=== PATIENT | male | born 1980 | race Caucasian/White ===

== ENCOUNTER 2020-06-06 10:44 | Outpatient (CLI) | payer OTHER, SELFPAY ==
[2020-06-06 10:58] LABS: Add Urine Microscopic? NO; Appearance Urine Clear (Clear); Bilirubin Urine Negative (Negative); Blood Urine Negative (Negative); Color Urine Yellow (Yellow); Glucose Urine UA Negative (Negative); Ketones Urine Negative (Negative); Leukocyte Esterase Ur Negative (Negative); Nitrate Urine Negative (Negative); Protein Urine Negative (Negative); Specific Grav Ur 1.025 (1.010-1.020); Urobilinogen Urine 0.2 mg/dL (0.2-1.0); pH Urine 6.5 (5.0-8.0)
== END 2020-06-06 10:45 | disposition home or self-care (01) ==
LOC: CHSLAB 10:49
PROVIDERS: PCP Internal Medicine; Visit Provider Internal Medicine
DX: N45.1 Epididymitis (principal)
CPT/HCPCS: 81003; 87086; 87491; 87591

== ENCOUNTER 2020-06-22 08:20 | Outpatient (CLI) | payer OTHER, SELFPAY | END 2020-06-22 08:21 | disposition home or self-care (01) | LOC: CHSCOVIDVC 08:21 | PROVIDERS: PCP Internal Medicine | DX: Z23 Encounter for immunization (principal) | CPT/HCPCS: 0011A; 91301 ==

== ENCOUNTER 2020-07-20 08:21 | Outpatient (CLI) | payer OTHER, SELFPAY | END 2020-07-20 08:22 | disposition home or self-care (01) | LOC: CHSCOVIDVC 08:21 | PROVIDERS: PCP Internal Medicine | DX: Z23 Encounter for immunization (principal) | CPT/HCPCS: 0012A; 91301 ==

== ENCOUNTER 2020-07-27 09:28 | Outpatient (CLI) | payer OTHER, SELFPAY ==
[2020-07-27 10:28] LABS: SARS-CoV-2 RNA PCR Negative (Negative)
== END 2020-07-27 09:29 | disposition home or self-care (01) ==
PROVIDERS: PCP Internal Medicine; Visit Provider Nurse Practitioner Family
DX: Z20.822 Contact with and (suspected) exposure to COVID-19 (principal)
CPT/HCPCS: C9803; U0003; U0005

== ENCOUNTER 2020-12-02 10:45 | Emergency (ER) | payer OTHER, SELFPAY ==
--- NOTE | ~2020-12-02 | CT_ITS ---
EXAMINATION: CT brain wo con EXAM DATE: 12/02/2020 12:20 INDICATION: Syncope, dizziness, tachycardia. Numbness in limbs. Recent episodes of anxiety/stress. TECHNIQUE: Spiral CT of the head was performed without contrast. Axial, coronal and sagittal images were reviewed. The dose-length product (DLP) for this examination was 605.33 mGy-cm. The exposure w as tailored according to patient size, and iterative reconstruction (ASIR) was used as additional dos e reduction technique. There is no prior study for comparison. FINDINGS: There is no acute intraparenchymal hemorrhage. No evidence of intraparenchymal brain mass lesion. No evidence of acute infarction. There is no mass effect or midline shift. The ventricles are normal in size. There are no extra-axial collections. There are no acute calvarial fractures. T he orbits are unremarkable. Soft tissue is unremarkable. The visualized sinuses and mastoid air samia ls are well aerated. IMPRESSION: 1. Unremarkable head CT examination. Reviewed, dictated and finalized at location A.
[2020-12-02 10:45] VITALS: BP 139/95; PULSE 86; PULSE 88; RESP 17; TEMP 36.6; O2SAT 95
--- NOTE | 2020-12-02 11:38 | ECG_ITS ---
Measurements Intervals [place] Rate: 85 P: 58 [place]: 142 QRS: 74 QRSD: 98 T: 71 QT: 333 QTc: 398 Interpretive Statements SINUS RHYTHM NORMAL ECG Electronically Signed On 12-02-2020 14:50:41 CDT by Marcelino Cross D.O.
[2020-12-02 12:07] LABS: Basophils Absolute Auto 0.08 K/mm3 (0.00-0.10); Eosinophils Absolute Auto 0.13 K/mm3 (0.02-0.50); Eosinophils Percent Auto 1.6 % (1.0-6.0); Hematocrit 53.1 % (40.0-54.0); Hemoglobin 17.9 g/dL (14.0-18.0); Immature Granulocyte Absolute 0.06 K/mm3 (0.00-0.00); Immature Granulocyte Percent A 0.7 % (0.0-0.0); Lymphocytes Percent Auto 12.5 % (18.0-42.0); Mean Corpuscular HGB Conc 33.7 g/dL (32.0-36.0); Mean Corpuscular Hemoglobin 31.6 pg (27.0-31.0); Mean Corpuscular Volume 93.8 fL (78.0-102.0); Mean Platelet Volume 10.1 fl (8.7-11.0); Monocytes Absolute Auto 0.86 K/mm3 (0.10-0.90); Monocytes Percent Auto 10.7 % (2.0-11.0); Neutrophils Absolute Auto 5.9 K/mm3 (1.7-7.2); Neutrophils Percent Auto 73.5 % (50.0-70.0); Platelet Count Result 293 K/mm3 (150-420); Red Blood Count 5.66 M/mm3 (4.70-6.10); Red Cell Distribution Width 13.2 % (11.6-14.4)
[2020-12-02 12:18] LABS: Ethanol < 3 mg/dL (0-6)
[2020-12-02 12:24] LABS: Alanine Aminotransferase 30 U/L (16-63); Albumin Level 3.8 g/dL (3.4-5.0); Alkaline Phosphatase 66 U/L (46-116); Anion Gap 10 mmol/L (8-16); Aspartate Amino Transferase 10 U/L (15-37); Bilirubin,Total 0.3 mg/dL (0.00-1.00); Blood Urea Nitrogen 14 mg/dL (7-18); Calcium 9.1 mg/dL (8.5-10.1); Carbon Dioxide 31 mmol/L (21-32); Chloride 101 mmol/L (98-108); Estimated CRCL calculation 87 ml/min; Estimated Glomerular Filt Rate > 60; Glucose 98 mg/dL (70-99); Osmolality Calculated 294 mOsm/kg (285-295); Potassium 4.3 mmol/L (3.5-5.1); Sodium 142 mmol/L (136-145); Total Protein 7.2 g/dL (6.4-8.2); Troponin I 4.2 ng/L (0.00-60.4)
[2020-12-02 13:25] LABS: Add Urine Microscopic? YES; Appearance Urine Sl Cloudy (Clear); Bilirubin Urine Negative (Negative); Blood Urine Negative (Negative); Color Urine Light Yellow (Yellow); Glucose Urine UA Negative (Negative); Ketones Urine Negative (Negative); Leukocyte Esterase Ur Negative (Negative); Nitrate Urine Negative (Negative); Protein Urine Negative (Negative); Specific Grav Ur 1.015 (1.010-1.020); Urobilinogen Urine 0.2 mg/dL (0.2-1.0)
[2020-12-02 13:27] LABS: RBC Urine None seen /hpf (0-2)
[2020-12-02 13:28] LABS: Amorphous Sediment Urine Moderate; Bacteria Urine Trace /hpf; WBC Urine None seen /hpf (0-3)
[2020-12-02 13:34] LABS: Amphetamine Screen Urine Negative (Negative); Barbiturate Screen Urine Negative (Negative); Benzodiazepines Screen Urine Positive (Negative); Cannabinoid Screen Urine Negative (Negative); Cocaine Screen Urine Positive (Negative); Methadone Screen Urine Negative (Negative); Opiate Screen Urine Negative (Negative); Phencyclidine Screen Urine Negative (Negative)
--- NOTE | 2020-12-02 14:07 | ED.SYNCOPE ---
HPI - Syncope General Chief Complaint: Syncope Stated Complaint: ambulance Time Seen by Provider: 12/02/20 10:50 Source: patient, family, EMS and RN notes reviewed Mode of arrival: EMS Limitations: no limitations History of Present Illness complaint: loss of consciousness and collapsed Onset (ago): hour(s) (1/2) Duration of episode: 30 -: second(s) Description of event: other (pt was dizzy, he sat down, went to his knees and forearms then fell over laterally for a brief moment.) Prodromal symptoms: headache and nausea/vomiting Witnessed: Yes - by Other Context: during exertion and standing up Injuries sustained associated with event: none Current symptoms: lightheaded, headache and nausea Treatments prior to arrival: none Related Data Home Medications Medication Instructions Recorded Confirmed aripiprazole 5 mg PO DAILY 12/02/20 12/02/20 escitalopram oxalate 20 mg PO DAILY 12/02/20 12/02/20 Allergies Allergy/AdvReac Type Severity Reaction Status Date / Time No Known Allergies Allergy Verified 12/02/20 11:24 Review of Systems Review of Systems: All systems reviewed & are unremarkable except as noted in HPI and below Neurologic: Reports dizziness, Reports syncope and Reports headache(s) PMFSH Past Medical History Medical History Dizziness and giddiness Exam Const: General: healthy appearing, no acute distress and alert Nutritional Appearance: well nourished Orientation/consciousness: patient oriented x3 HENMT: Head: normal to inspection Ears: external ears normal and TM's normal bilaterally General nose exam: Normal external nose present and Normal nares present Face and sinus: normal facial exam Mouth: Yes lip normal and Yes moist mucous membranes Teeth and gingiva: dentition normal Throat: posterior oropharynx normal Eyes: Conjunctivae: conjunctivae normal Pupils: Equal, round and reactive pupils present EOM: EOMs intact bilaterally Neck: Neck: normal visual inspection and no lymphadenopathy Chest: Chest palpation & inspection: normal inspection of the chest Resp: Effort & Inspection: normal respiratory effort Auscultation: clear to auscultation bilaterally Cardio: Rate: regular rate Rhythm: regular rhythm Course Course Emergency Course: Pt was stable in the ED. Less GARCIA and dizziness. Pt for Behavioral Health review prior to disposition. Reevaluation(s) Date: 12/02/20 Time: 11:41 Vital Signs Vital signs: Vital Signs Temperature 36.6 C 12/02/20 10:45 Pulse Rate 86 12/02/20 10:45 Respiratory Rate 17 12/02/20 10:45 Blood Pressure 139/95 H 12/02/20 10:45 Pulse Oximetry 95 12/02/20 10:45 Temperature 36.6 C 12/02/20 10:45 Pulse Rate 102 H 12/02/20 15:42 Respiratory Rate 20 12/02/20 15:42 Blood Pressure 133/91 H 12/02/20 15:42 Pulse Oximetry 98 12/02/20 15:42 MDM - Syncope Differential Diagnosis Differential diagnosis: Likely syncope due to orthostatic hypotension, vasovagal syncope and dehydration Medical Records Attestation: I reviewed the patient's medical records. Lab Data Attestation: I reviewed the patient's lab results. Result diagrams: 12/02/20 11:57 12/02/20 11:57 Labs: Lab Results 12/02/20 12/02/20 12/02/20 Range/Units 11:43 11:43 11:57 WBC 8.0 (4.8-10.8) K/mm3 RBC 5.66 (4.70-6.10) M/mm3 Hgb 17.9 (14.0-18.0) g/dL Hct 53.1 (40.0-54.0) % MCV 93.8 (78.0-102.0) fL MCH 31.6 H (27.0-31.0) pg MCHC 33.7 (32.0-36.0) g/dL RDW 13.2 (11.6-14.4) % Plt Count 293 (150-420) K/mm3 MPV 10.1 (8.7-11.0) fl Immature Gran % (Auto) 0.7 H (0.0-0.0) % Neut % (Auto) 73.5 H (50.0-70.0) % Lymph % (Auto) 12.5 L (18.0-42.0) % Burt % (Auto) 10.7 (2.0-11.0) % Eos % (Auto) 1.6 (1.0-6.0) % Baso % (Auto) 1.0 (0.0-1.0) % Lymph # (Auto) 1.00 L (1.10-4.50) K/mm3 Burt # (Auto) 0.86 (0.10-0.
[2020-12-02 15:42] VITALS: BP 133/91; PULSE 102; RESP 20; O2SAT 98
== END 2020-12-02 15:45 | disposition home or self-care (01) ==
PROVIDERS: Emergency Provider Emergency Medicine; PCP Internal Medicine
DX: R42 Dizziness and giddiness (principal); F41.9 Anxiety disorder, unspecified
CPT/HCPCS: 36415; 70450; 80053; 80307; 81001; 84484; 85025; 93005; 99282; 99284

== ENCOUNTER 2021-02-28 14:40 | Outpatient (CLI) | payer OTHER, SELFPAY ==
[2021-02-28 15:46] LABS: SARS-CoV-2 Ag Negative (Negative)
== END 2021-02-28 14:41 | disposition home or self-care (01) ==
LOC: CHSLAB 14:42
PROVIDERS: PCP Internal Medicine; Visit Provider Internal Medicine
DX: J06.9 Acute upper respiratory infection, unspecified (principal); Z20.822 Contact with and (suspected) exposure to COVID-19
CPT/HCPCS: 87426; C9803

== ENCOUNTER 2021-06-04 13:43 | Outpatient (CLI) | payer OTHER, SELFPAY ==
[2021-06-04 14:00] LABS: Basophils Absolute Auto 0.09 K/mm3 (0.00-0.10); Basophils Percent Auto 1.9 % (0.0-1.0); Eosinophils Absolute Auto 0.03 K/mm3 (0.02-0.50); Eosinophils Percent Auto 0.6 % (1.0-6.0); Hematocrit 50.6 % (40.0-54.0); Hemoglobin 16.6 g/dL (14.0-18.0); Immature Granulocyte Absolute 0.02 K/mm3 (0.00-0.00); Immature Granulocyte Percent A 0.4 % (0.0-0.0); Lymphocytes Absolute Auto 1.23 K/mm3 (1.10-4.50); Lymphocytes Percent Auto 26.5 % (18.0-42.0); Mean Corpuscular HGB Conc 32.8 g/dL (32.0-36.0); Mean Corpuscular Hemoglobin 30.7 pg (27.0-31.0); Mean Corpuscular Volume 93.7 fL (78.0-102.0); Mean Platelet Volume 10.1 fl (8.7-11.0); Monocytes Absolute Auto 0.42 K/mm3 (0.10-0.90); Neutrophils Absolute Auto 2.9 K/mm3 (1.7-7.2); Neutrophils Percent Auto 61.6 % (50.0-70.0); Platelet Count Result 271 K/mm3 (150-420); Red Cell Distribution Width 12.4 % (11.6-14.4); White Blood Count 4.7 K/mm3 (4.8-10.8)
[2021-06-04 14:04] LABS: Add Urine Microscopic? NO; Appearance Urine Clear (Clear); Bilirubin Urine Negative (Negative); Blood Urine Negative (Negative); Color Urine Yellow (Yellow); Glucose Urine UA Negative (Negative); Ketones Urine Negative (Negative); Leukocyte Esterase Ur Negative (Negative); Nitrate Urine Negative (Negative); Protein Urine Negative (Negative); Urobilinogen Urine 0.2 mg/dL (0.2-1.0); pH Urine 7.5 (5.0-8.0)
[2021-06-04 15:10] LABS: Alanine Aminotransferase 41 U/L (16-63); Albumin Level 4.5 g/dL (3.4-5.0); Alkaline Phosphatase 56 U/L (46-116); Anion Gap 8 mmol/L (8-16); Aspartate Amino Transferase 14 U/L (15-37); Bilirubin,Total 0.4 mg/dL (0.00-1.00); Blood Urea Nitrogen 13 mg/dL (7-18); Calcium 9.2 mg/dL (8.5-10.1); Carbon Dioxide 31 mmol/L (21-32); Chloride 100 mmol/L (98-108); Cholesterol 235 mg/dL (0-200); Estimated Glomerular Filt Rate > 60; Glucose 71 mg/dL (70-99); HDL Direct 18 mg/dL (40-60); LDL Cholesterol Calculated 204 mg/dL (<130); Osmolality Calculated 286 mOsm/kg (285-295); Potassium 4.3 mmol/L (3.5-5.1); Sodium 139 mmol/L (136-145); Thyroid Stimulating Hormone 0.85 uIU/mL (0.36-3.74); Total Protein 7.4 g/dL (6.4-8.2); Triglycerides 65 mg/dL (0-150)
[2021-06-07 14:38] LABS: LH <0.2 mIU/mL (1.5-9.3)
[2021-06-09 06:56] LABS: Testosterone Free 158.8 pg/mL (35.0-155.0); Testosterone Total 563 ng/dL (250-1100)
== END 2021-06-04 13:44 | disposition home or self-care (01) ==
LOC: CHSLAB 13:46
PROVIDERS: PCP Internal Medicine; Visit Provider Internal Medicine
DX: Z00.00 Encounter for general adult medical examination without abnormal findings (principal); N52.9 Male erectile dysfunction, unspecified
CPT/HCPCS: 36415; 80053; 80061; 81003; 83002; 84402; 84403; 84443; 85025

== ENCOUNTER 2021-10-09 12:08 | Outpatient (CLI) | payer OTHER, SELFPAY ==
[2021-10-09 12:23] LABS: Hemoglobin 17.6 g/dL (14.0-18.0); Mean Corpuscular HGB Conc 34.5 g/dL (32.0-36.0); Mean Corpuscular Hemoglobin 31.8 pg (27.0-31.0); Mean Corpuscular Volume 92.1 fL (78.0-102.0); Mean Platelet Volume 10.3 fl (8.7-11.0); Platelet Count Result 243 K/mm3 (150-420); Red Blood Count 5.54 M/mm3 (4.70-6.10); Red Cell Distribution Width 12.1 % (11.6-14.4)
[2021-10-09 12:37] LABS: Alanine Aminotransferase 34 U/L (16-63); Albumin Level 4.6 g/dL (3.4-5.0); Alkaline Phosphatase 58 U/L (46-116); Anion Gap 7 mmol/L (8-16); Aspartate Amino Transferase 16 U/L (15-37); Bilirubin,Total 0.9 mg/dL (0.00-1.00); Blood Urea Nitrogen 12 mg/dL (7-18); Calcium 9.2 mg/dL (8.5-10.1); Carbon Dioxide 30 mmol/L (21-32); Chloride 101 mmol/L (98-108); Estimated Glomerular Filt Rate > 60; Glucose 88 mg/dL (70-99); Magnesium 2.1 mg/dL (1.8-2.4); Osmolality Calculated 284 mOsm/kg (285-295); Potassium 4.2 mmol/L (3.5-5.1); Sodium 138 mmol/L (136-145); Total Protein 7.2 g/dL (6.4-8.2)
--- NOTE | 2021-10-13 07:58 | WPDHOLTEREM ---
Holter/Event Monitor Holter/Event Monitor Date of procedure: 10/09/21 Holter/Event Procedure: 48 Hr Holter Monitor Indications: Tachycardia Conclusion: 1. 48 hour holter monitor on 10/09/21. 2. Underlying rhythm is sinus rhythm. HR range 43-156 bpm; average HR 84 bpm. HR at 156 bpm was at 18:38. 3. There are 16 premature supraventricular complexes. No supraventricular tachycardia. 4. There are 19 premature ventricular complexes and 3 ventricular trigeminy. No ventricular tachycardia. 5. No sinoatrial or atrioventricular blocks. No significant pauses greater than 2 seconds. 6. Patient reports symptoms of high heart rate, shortness of breath which demonstrate sinus rhythm, HR range 100-105 bpm.
== END 2021-10-09 12:09 | disposition home or self-care (01) ==
LOC: CHSLAB 12:11
PROVIDERS: PCP Family Medicine; Visit Provider Family Medicine
DX: R00.0 Tachycardia, unspecified (principal); E11.9 Type 2 diabetes mellitus without complications
CPT/HCPCS: 36415; 80053; 83735; 84443; 85027; 93225; 93226

== ENCOUNTER 2023-02-01 13:48 | Outpatient (CLI) | payer BC, SELFPAY | END 2023-02-01 13:49 | disposition home or self-care (01) | LOC: CHSLAB 13:50 | PROVIDERS: PCP Nurse Practitioner Family; Visit Provider Nurse Practitioner Family | DX: T78.40XA Allergy, unspecified, initial encounter (principal) | CPT/HCPCS: 36415; 82785; 86003 ==

== ENCOUNTER 2023-02-06 10:23 | Outpatient (CLI) | payer BC, SELFPAY ==
[2023-02-09 23:02] LABS: Lactoferrin, Stool Negative (Negative)
[2023-02-10 17:47] LABS: H pylori Ag Stool Not Detected (Not Detected)
[2023-02-11 06:59] LABS: Fecal Fat, Ql Normal (Normal)
[2023-02-14 17:18] LABS: Calprotectin, Stool 15 mcg/g; Pancreatic Elastase, Stool >500 mcg/g
== END 2023-02-06 10:24 | disposition home or self-care (01) ==
LOC: CHSLAB 10:25
PROVIDERS: PCP Family Medicine; Visit Provider Nurse Practitioner Family
DX: R14.0 Abdominal distension (gaseous) (principal)
CPT/HCPCS: 82653; 82705; 83630; 83993; 87338

== ENCOUNTER 2023-04-14 09:22 | Outpatient (CLI) | payer BC, SELFPAY ==
[2023-04-14 10:04] LABS: Strep Group A RT-PCR NOT DETECTED (Negative)
[2023-04-14 10:13] LABS: Influenza A QL RT-PCR Positive (Negative); Influenza B QL RT-PCR Negative (Negative); RSV RNA, RT-PCR Negative (Negative); SARS-CoV-2 RNA PCR Negative (Negative)
== END 2023-04-14 09:23 | disposition home or self-care (01) ==
PROVIDERS: PCP Family Medicine; Visit Provider Nurse Practitioner Family
DX: R05.9 Cough, unspecified (principal); Z20.822 Contact with and (suspected) exposure to COVID-19
CPT/HCPCS: 87637; 87651

== ENCOUNTER 2023-09-16 11:22 | Outpatient (CLI) | payer BC, SELFPAY ==
--- NOTE | ~2023-09-16 | XR_ITS ---
EXAM: XR wrist LT min 3V DATE: 09/16/2023 11:38 HISTORY: LT MEDIAL WRIST PAIN [id number] . COMPARISON: None available. FINDINGS: Normal mineralization. No fracture or dislocation. No lytic or blastic lesion. Mild joint space narrowing and osteophytosis at the radial carpal joint adjacent to the scaphoid. No erosion or periosteal change. 2 mm radiopaque foreign body in the distal lateral forearm soft tissues. IMPRESSION: Mild radiocarpal osteoarthritis. Reviewed, dictated and finalized at location K.
== END 2023-09-16 11:23 | disposition home or self-care (01) ==
LOC: CHSIMG 11:24
PROVIDERS: PCP Family Medicine; Visit Provider Family Medicine
DX: M25.532 Pain in left wrist (principal); M19.032 Primary osteoarthritis, left wrist
CPT/HCPCS: 73110

== ENCOUNTER 2024-01-12 10:26 | Outpatient (CLI) | payer BC, SELFPAY ==
[2024-01-12 10:42] LABS: Basophils Absolute Auto 0.09 K/mm3 (0.00-0.10); Basophils Percent Auto 1.1 % (0.0-1.0); Eosinophils Absolute Auto 0.09 K/mm3 (0.02-0.50); Eosinophils Percent Auto 1.1 % (1.0-6.0); Hematocrit 55.4 % (40.0-54.0); Hemoglobin 18.6 g/dL (14.0-18.0); Immature Granulocyte Absolute 0.03 K/mm3 (0.00-0.00); Immature Granulocyte Percent A 0.4 % (0.0-0.0); Lymphocytes Absolute Auto 1.22 K/mm3 (1.10-4.50); Lymphocytes Percent Auto 15.2 % (18.0-42.0); Mean Corpuscular HGB Conc 33.6 g/dL (32-36); Mean Corpuscular Volume 89.2 fL (78.0-102.0); Mean Platelet Volume 9.7 fl (8.7-11.0); Monocytes Absolute Auto 0.68 K/mm3 (0.10-0.90); Monocytes Percent Auto 8.4 % (2.0-11.0); Neutrophils Absolute Auto 5.94 K/mm3 (1.70-7.20); Neutrophils Percent Auto 73.8 % (50.0-70.0); Platelet Count Result 263 K/mm3 (150-420); Red Blood Count 6.21 M/mm3 (4.70-6.10); Red Cell Distribution Width 13.8 % (11.6-14.4); White Blood Count 8.1 K/mm3 (4.8-10.8)
[2024-01-12 11:13] LABS: Alanine Aminotransferase 42 U/L (16-63); Albumin Level 3.8 g/dL (3.4-5.0); Alkaline Phosphatase 60 U/L (46-116); Anion Gap 7 mmol/L (4-12); Aspartate Amino Transferase 15 U/L (15-37); Bilirubin,Total 0.4 mg/dL (0.00-1.00); Blood Urea Nitrogen 12 mg/dL (7-18); Calcium 9.1 mg/dL (8.5-10.1); Carbon Dioxide 31 mmol/L (21-32); Chloride 100 mmol/L (98-108); Cholesterol 134 mg/dL (0-200); Estimated Glomerular Filt Rate > 60; Glucose 133 mg/dL (70-99); HDL Direct 21 mg/dL (40-60); LDL Cholesterol Calculated 107 mg/dL (<130); Lipase 50 U/L (16-77); Osmolality Calculated 287 mOsm/kg (285-295); Potassium 5.2 mmol/L (3.5-5.1); Sodium 138 mmol/L (136-145); Total Protein 6.6 g/dL (6.4-8.2); Triglycerides 32 mg/dL (0-150)
[2024-01-12 11:14] LABS: CRP < 0.5 mg/dL (0.0-0.9)
== END 2024-01-12 10:27 | disposition home or self-care (01) ==
PROVIDERS: PCP Family Medicine; Visit Provider Family Medicine
DX: R10.9 Unspecified abdominal pain (principal)
CPT/HCPCS: 36415; 80053; 80061; 83690; 85025; 86140

== ENCOUNTER 2024-01-13 10:20 | Outpatient (NON) | payer BC, SELFPAY | END 2024-01-13 10:21 | disposition home or self-care (01) | LOC: CHSLAB 10:21 | PROVIDERS: PCP Family Medicine; Visit Provider Family Medicine | DX: R10.9 Unspecified abdominal pain (principal) | CPT/HCPCS: 87086 ==

== ENCOUNTER 2024-11-29 03:06 | Day surgery (SDC) | payer BC, SELFPAY ==
[2024-11-28 08:26] VITALS: BMI 26.4
--- NOTE | 2024-11-28 08:37 | PC.NURSE ---
Addendum entered by Lenin Macias RN 11/28/24 08:47: Patient told to stop Clear liquids at 0630am. Original Note: [facility] has started construction of its new state of the art ER which will open Spring 2026. With this, we anticipate parking may be a challenge for some our surgical patients and families. Parking spaces are limited but are available for all Surgical, obstetrics, and ER patients sharing this lot. If you arrive and find you are having a hard time finding a parking space, please note that we understand the challenges, please drive around the hospital and park near Hospital Entrance 1. When you enter this entrance, you can ask a volunteer to direct or take you back to the surgical waiting area to check in. We appreciate everyone?s understanding of these expected challenges while we build for your future. Report to the Outpatient Waiting Room, entrance under the green pavilion located off [facility], at time _1230_ on date _[phone]_. Planned Procedure Time: _230pm_.? Time changes happen often and if your time is changed the preop area will call you the afternoon before. - You and your visitor will be asked to self-screen and do not enter if you have any COVID symptoms. Please call surgeon if you need to reschedule. - A mask is optional within the hospital at this time. Patients may have clear liquids (water, carbonated beverages, clear teas, apple juice) until 3 hours prior to surgery with a maximum of 20 ounces. - No food from midnight until time of surgery and no smoking, or chewing tobacco (or any form of nicotine). No chewing gum, candy or mints. Take only the following medications with a SIP of water on the morning of surgery: __Citalopram, Lamotrigine, Propanolol___ DO NOT STOP ANY OF YOUR OTHER PRESCRIPTION MEDICATIONS PRIOR TO SURGERY EXCEPT THE FOLLOWING Hold all vitamins and supplements for 3 days per anesthesiologist. Medications to discontinue per physician Date to take last dose Please no make-up, nail icelandic, hairspray, perfume, deodorant, or body powder the day of surgery.? No jewelry (including any body piercings) or valuables the day of surgery, leave them at home.? Please take a shower or bath the night before, or the morning of, surgery with an antibacterial soap.? Wear comfortable, loose fitting clothing.? - Jewelry must be removed prior to entering the operating room.? Rings and piercings that are not removed may be cut off. - The hospital will not accept responsibility for valuables.? - Please leave all valuables, including medications, at home the day of surgery. If you are going home after surgery, a licensed residential recycle driver must drive you home.? - NO public transportation without another adult if you receive anesthesia. - We recommend that an adult stay with you for 24 hours following discharge. - We also recommend that you do not drive, make important decision, drink alcoholic beverages, or take any drugs that were not prescribed by your health care provider for at least 24 hours after your discharge time. Follow any additional instructions given to you from your surgeon. Telephone instructions given to __Michael___and asked if any additional questions and then verbalized understanding. Patient advised to call surgeon office or pre surgery nurse liaison [phone] if any additional questions.
--- OUTSIDE RECORDS SUMMARY | 2024-11-29 03:08 | XMS_ITS | Clinical Summary ---
Author Organization [facility] Address [address] [place] [address] Care Team Providers Care Cyber Systems Operations Specialist Name Role Phone Unavailable Primary Care Provider Unavailabl e Social History Tobacco Use Types Packs/Day Years Used Date Smoking Tobacco: Never Assessed Sex and Gender Information Value Date Recorded Sex Assigned at Not on file Legal Sex Male 7:10 PM CDT Gender Identity Not on file Sexual Orientation Not on file Last Filed Vital Signs Vital Sign Reading Time Taken Comments Blood Pressure 110/75 01/31/2015 3:29 PM BASTING MACHINE OPERATOR Pulse - - Temperature - - Respiratory Rate - - Oxygen Saturation - - Inhaled Oxygen Concentration - - Weight 84.4 kg (186 lb) 01/31/2015 3:29 PM BASTING MACHINE OPERATOR Height 182.9 cm (6') 01/31/2015 3:29 PM BASTING MACHINE OPERATOR Body Mass Index 25.23 01/31/2015 3:29 PM BASTING MACHINE OPERATOR Plan of Treatment Health Maintenance Due Date Last Done Comments Colorectal Cancer Screening Colonoscopy (10 Years) 1979 Annual Physical 11/15/1982 Hepatitis C 11/15/1997 DTaP, Tdap and Td Vaccines ( 1 - Tdap) 11/15/1998 Hepatitis B Vaccines (1 of 3 - 19+ 3-dose series) 11/15/1998 HPV Vaccines (1 - 3-dose SCD M series) 11/15/2006 COVID-19 Vaccine ( - 2023-2 5 season) 2024 Meningococcal B Vaccine Aged Out No l onger eligible based on patient's age to complete this topic Meningococcal Vaccine Aged Out No abhijeet jackie eligible based on patient's age to complete this topic Pneumococcal Vaccine: Pediat rics (0 to 5 Years) and At-Risk Patients (6 to 49 Years) Aged Out No longer eligible b ased on patient's age to complete this topic RSV Immunizations Under 20 Months Aged Out No longer eligible based on patient's age to complete this topic
--- OUTSIDE RECORDS SUMMARY | 2024-11-29 03:08 | XMS_ITS | Patient Health Record ---
Author Organization [facility] Address [facility] [address] [facility] [address] [facility] [address] [place] [address] Care Team Providers Care Data Management Name Role Phone Alexandr Choudhury Unavailable [phone] Reason For Referral No Information Medications Medication SIG (Take, Route, Frequency, Duration) Notes Start Date End Date Status Escitalopram Oxalate 20 MG Tablet Oral Active ARIPiprazole 5 MG Tablet Oral Active Plan Of Treatment No Information Insurance Providers Payer Name Payer Address Payer Phone Subscriber Number Group Number Insured Name Patient Relationship to Insured Coverage Start Date Coverage End Date [employer] [address] [address] [place] [address] [id number] JONI TORRES Self - patient is the insured
--- NOTE | 2024-11-29 07:12 | P.OP_ITS ---
Procedure Note - Detailed Date of Procedure 11/29/24 Pre-op Diagnosis left ring trigger finger Post-op Diagnosis Same Procedure Performed left ring finger a1 daiana release Surgeon Anton Khanna MD Tour Coordinator kathia langston pa-c Anesthesia MAC Description of Procedure INFORMED CONSENT: The patient was seen and examined and marked in the pre-op area.? The patient signed the consent form. PROCEDURE IN DETAIL:The patient taken back to OR on the stretcher in supine position. Time out performed with anesthesia, surgeon and staff agreeing on patient's name site and surgery to be performed SCDs were placed on the lower extremities and inflated. A tourniquet was placed on {left} upper extremity and antibiotics given IV After anesthesia administered sedation I injected {4}cc 1%lido and 0.5% marcaine plain at the operative site The?{left upper extremity}?was prepped and draped in sterile fashion the??{left upper extremity} was? exsanguinated with Esmarch bandage and tourniquet inflated to 250mmHg I proceeded with making a longitudinal incision over the left ring finger A1 pu lley through skin and dermis with a 15 blade scalpel. Littler scissors were used to spread through subcutaneous tissue down to the A1 daiana. A1 daiana was identified and initially incised with a 15 blade scalpel noting hyperemic appearing daiana. Littler scissors were used to spread above and below it proximally and distally completing the transection entirely. I irrigated with normal saline and closed with 4-0 chromic. A dressing of xeroform, 4x4, cuate, and an kate bandage after the tourniquet was let down noting the hand was warm and well perfused. The patient was then awaken from anesthesia and transferred to the recovery room in stable condition.? Complications - none EBL- 0cc Disposition - home in stable condition kathia donovan pa-c was essential for positioning, retraction, closure and dressing placement [facility] Billing Surgery - Charge Forward: Surgery Billing ([id number] for kathia)
--- NOTE | 2024-11-29 07:12 | WPDHPUPDATE1 ---
History and Physical Update Update Date/Time: 11/29/24 07:12 Patient seen and examined in pre-operative holding area. No interval change in medical history or symptoms. Patient recalls previous discussion of benefits and alternatives to procedure. Continues to desire to proceed with right ring finger a1 daiana release . Reviewed procedure, post-op expectations and risks including but not limited to bleeding, infection, injury to tendon/nerve/vessel, decreased hand function, stiffness, RSD, no change or worsening of symptoms. I discussed the possible use of assistants and their participation in the case. Patient stated understanding and signed the consent form wishing to proceed.
[2024-11-29] MEDS: ACETAMINOPHEN 500 MG TABLET 1000 MG PO (11:45)
[2024-11-29 13:01] VITALS: BP 133/88; PULSE 73; RESP 16; TEMP 36.7; O2SAT 97; BMI 25.7
--- NOTE | 2024-11-29 13:20 | WPDANESEPPF ---
Anes - Initial Pre Proc Eval Procedure: Operation Date: 11/29/24 13:45 Proposed Procedures p Left Ring Finger A 1 Taniya Release - Anton Khanna MD Date/Time: 11/29/24 13:20 Surgeon: Anton Khanna MD Pre Op Diagnosis: Lt ring finger trigger finger Patient Data Age: 44 Gender: M Height: 1.83 m Weight: 86 kg Last Vital Signs Temp 36.7 C 11/29/24 13:01 Pulse 73 11/29/24 13:01 Resp 16 11/29/24 13:01 BP 133/88 11/29/24 13:01 Pulse Ox 97 11/29/24 13:01 O2 Del Method Room Air 11/29/24 13:01 Allergies Allergy/AdvReac Type Severity Reaction Status Date / Time No Known Allergies Allergy Verified 11/28/24 08:24 Home Medications ?Medication ?Instructions ?Recorded ?Confirmed ?Type atorvastatin 80 mg tablet See Rx Instructions .Route 04/17/24 11/28/24 Rx .COMPLEX #90 tabs citalopram 20 mg tablet 20 mg PO DAILY 09/08/24 11/29/24 History dextroamphetamine-amphetamine ER 20 mg PO DAILY 09/08/24 11/28/24 History 20 mg 24hr capsule,extend release (Adderall XR) lamotrigine 100 mg tablet 100 mg PO DAILY 09/08/24 11/28/24 History lisinopril 20 mg tablet See Rx Instructions .Route 09/12/24 11/28/24 Rx .COMPLEX #90 tabs pantoprazole 40 mg tablet,delayed See Rx Instructions .Route 11/06/24 11/28/24 Rx release .COMPLEX #30 tabs propranolol 80 mg capsule,24 80 mg PO DAILY 11/28/24 11/29/24 History hr,extended release quetiapine 50 mg tablet 50 mg PO HS 11/28/24 11/28/24 History tramadol 50 mg tablet 50 mg PO Q6H PRN pain #12 tabs 11/29/24 Rx Patient hx anesthesia problems: none Family hx anesthesia problems: none Results Review: All pre-operative results and documents have been reviewed as part of the pre-operative evaluation. [facility] Past Medical History Medical History Hypertension Anxiety Hyperlipidemia Surgical History Surgical History No history of previous surgery Social History Social History Years smoked: 9 Smoking status: Former smoker Tobacco type: cigarettes Smoking end date: 11/28/04 Additional smoking assessment comments: Quit smoking 2010. 10pk yr history Alcohol intake: current Other substance usage details: Pen from dispensary uses some nights to sleep. Lack of Transportation: No Lack of Food: Never True Current Housing: I Have Housing Concerned About Future Housing: No Difficulty Paying Gas/Electric Bills: No Difficulty Paying for Meds: No Currently Unemployed: No Education: Trade/Vocational Certificate Difficulty w/ Childcare or Family Care: No Living arrangements: with family Spiritual care concerns: No Anes - Eval Final PreProcedure Day of Procedure 11/29/24 13:20 Patient weight: normal Heart: regular rate and rhythm Lungs: clear to auscultation Airway: Mallampati scale class II Neurological: alert and oriented Last oral intake: >/= 8 hours ASA classification: III Emergent: no Anesthetic plan: proceed Anesthesia type and monitoring: general GIVS and standard monitoring Results Review: All pre-operative results and documents have been reviewed as part of the pre-operative evaluation. Informed Consent: The patient's anesthetic plan and its attendant risks and benefits were discussed with the patient/family/POA. Questions were solicited and answers provided to the satisfaction of the patient/family/POA.
[2024-11-29] MEDS: ceFAZolin 2 GM in SODIUM CHLORIDE 0.9% IV 50 ML 100 ML IVPB (13:28)
[2024-11-29] MEDS: BUPivacaine HCL 0.5% 10 ML AMP INFILTRATE (13:31)
[2024-11-29] MEDS: LIDOCAINE 1% LOCAL INJ 10 ML VIAL INFILTRATE (13:32)
[2024-11-29] MEDS: BACITRACIN OINTMENT 15 GM TUBE 1 APPLIC TOPICAL (13:36)
[2024-11-29 13:48] VITALS: BP 109/65; PULSE 66; RESP 14; O2SAT 94
[2024-11-29] MEDS: LACTATED RINGERS 1,000 ML 30 ML IV CONT (13:48)
[2024-11-29 14:15] VITALS: BP 107/69; PULSE 52; RESP 14; O2SAT 98
[2024-11-29 14:45] VITALS: BP 124/81; PULSE 53; RESP 14
== END 2024-11-29 14:55 | disposition home or self-care (01) ==
PROVIDERS: PCP Family Medicine; Visit Provider Plastic Surgery
PROC: (CPT 26055; principal; 2024-11-29 13:45)
DX: M65.342 Trigger finger, left ring finger (principal); I10 Essential (primary) hypertension; E78.5 Hyperlipidemia, unspecified; F41.9 Anxiety disorder, unspecified; F12.90 Cannabis use, unspecified, uncomplicated; Z79.891 Long term (current) use of opiate analgesic; Z87.891 Personal history of nicotine dependence
CPT/HCPCS: 26055; J0690; A9270; J2003; J2704; J3010; J7120

== ENCOUNTER 2025-02-07 03:51 | Day surgery (SDC) | payer BC, SELFPAY ==
[2025-02-06 10:07] VITALS: BMI 26.6
--- NOTE | 2025-02-06 10:16 | SUR.PREOP ---
[facility] has started construction of its new state of the art ER which will open Spring 2026. With this, we anticipate parking may be a challenge for some our surgical patients and families. Parking spaces are limited but are available for all Surgical, obstetrics, and ER patients sharing this lot. If you arrive and find you are having a hard time finding a parking space, please note that we understand the challenges, please drive around the hospital and park near Hospital Entrance 1. When you enter this entrance, you can ask a volunteer to direct or take you back to the surgical waiting area to check in. We appreciate everyone?s understanding of these expected challenges while we build for your future. Report to the Outpatient Waiting Room, entrance under the green pavilion located off [facility] [address], at time 8:15a.m. on date 02/07/2025. Planned Procedure Time: 10:15a.m..? Time changes happen often and if your time is changed the preop area will call you the afternoon before. - You and your visitor will be asked to self-screen and do not enter if you have any COVID symptoms. Please call surgeon if you need to reschedule. - A mask is optional within the hospital at this time. Patients may have clear liquids (water, carbonated beverages, clear teas, apple juice) until 3 hours prior to surgery with a maximum of 20 ounces. - No food from midnight until time of surgery and no smoking, or chewing tobacco (or any form of nicotine). No chewing gum, candy or mints. Take only the following medications with a SIP of water on the morning of surgery: propranolol, citalopram, lamotrigine DO NOT STOP ANY OF YOUR OTHER PRESCRIPTION MEDICATIONS PRIOR TO SURGERY EXCEPT THE FOLLOWING Hold all vitamins and supplements for 3 days per anesthesiologist. Medications to discontinue per physician NONE Date to take last dose NONE Please no make-up, nail kazakh, hairspray, perfume, deodorant, or body powder the day of surgery.? No jewelry (including any body piercings) or valuables the day of surgery, leave them at home.? Please take a shower or bath the night before, or the morning of, surgery with an antibacterial soap.? Wear comfortable, loose fitting clothing.? Children are encouraged to wear pajamas. - Jewelry must be removed prior to entering the operating room.? Rings and piercings that are not removed may be cut off. - The hospital will not accept responsibility for valuables.? - Please leave all valuables, including medications, at home the day of surgery. If you are going home after surgery, a licensed driver guide must drive you home.? - NO public transportation without another adult if you receive anesthesia. - We recommend that an adult stay with you for 24 hours following discharge. - We also recommend that you do not drive, make important decision, drink alcoholic beverages, or take any drugs that were not prescribed by your health care provider for at least 24 hours after your discharge time. Follow any additional instructions given to you from your surgeon. Telephone instructions given to Adrian Torres and asked if any additional questions and then verbalized understanding. Patient advised to call surgeon office or pre surgery nurse liaison [phone] if any additional questions.
--- OUTSIDE RECORDS SUMMARY | 2025-02-07 03:54 | XMS_ITS | Clinical Summary ---
Author Organization [facility] Address [address] [place] [address] Care Team Providers Care Radiology Physician Name Role Phone Unavailable Primary Care Provider [...] Comments Blood Pressure 110/75 01/31/2015 3:29 PM PHOTOGRAPHIC HAND DEVELOPER Pulse - - Temperature - - Respiratory Rate - - Oxygen Saturation - - Inhaled Oxygen Concentration - - Weight 84.4 kg (186 lb) 01/31/2015 3:29 PM PHOTOGRAPHIC HAND DEVELOPER Height 182.9 cm (6') 01/31/2015 3:29 PM PHOTOGRAPHIC HAND DEVELOPER Body Mass Index 25.23 01/31/2015 3:29 PM PHOTOGRAPHIC HAND DEVELOPER Plan of Treatment Health Maintenance Due Date Last Done Comments Colorectal Cancer Screening Colonoscopy (10 Years) 1979 Annual Physical 11/15/1982 Hepatitis C 11/15/1997 DTaP, Tdap and Td Vaccines ( 1 - Tdap) 11/15/1998 Hepatitis B Vaccines (1 of 3 - 19+ 3-dose series) 11/15/1998 HPV Vaccines (1 - 3-dose SCD M series) 11/15/2006 COVID-19 Vaccine (2024-2 6 season) 2024 Influenza Adult (#1) 2024 Hepatitis A Vaccines Aged Out No long er eligible based on patient's age to complete this topic Meningococcal B Vaccine Aged Out No l [...]
--- NOTE | 2025-02-07 06:48 | PM.HPGS ---
History of Present Illness History of Present Illness Chief complaint: rt ring trigger finger Narrative: Patient seen and examined in pre-operative holding area. No interval change in medical history or symptoms. Patient recalls previous discussion of benefits and alternatives to procedure. Continues to desire to proceed with right ring finger a1 daiana release. Reviewed procedure, post-op expectations and risks including but not limited to bleeding, infection, injury to tendon/nerve/vessel, decreased hand function, stiffness, RSD, no change or worsening of symptoms. I discussed the possible use of assistants and their participation in the case. Patient stated understanding and signed the consent form wishing to proceed. Review of Systems Review of Systems: All systems reviewed & are unremarkable except as noted in HPI and below PMFSH Past Medical History Medical History Hypertension Anxiety Hyperlipidemia Surgical History Surgical History No history of previous surgery Social History Social History Social History: Caffeine-coffee Smoking packs per day: 0.5 Smoking cigarettes per day: 10.0 Years smoked: 9 Smoking pack-years: 4.50 Smoking status: Former smoker Tobacco type: cigarettes Smoking end date: 11/28/04 Additional smoking assessment comments: Quit smoking 2010. 10pk yr history Alcohol intake: former Substance use: never Lack of Transportation: No Lack of Food: Never True Current Housing: I Have Housing Concerned About Future Housing: No Difficulty Paying Gas/Electric Bills: No Difficulty Paying for Meds: No Currently Unemployed: No Education: Trade/Vocational Certificate Difficulty w/ Childcare or Family Care: No Living arrangements: with family Spiritual care concerns: No Meds Home Medications and Allergies Home Medications ?Medication ?Instructions ?Recorded ?Confirmed ?Type atorvastatin 80 mg tablet See Rx Instructions .Route 04/17/24 02/07/25 Rx .COMPLEX #90 tabs citalopram 20 mg tablet 20 mg PO DAILY 09/08/24 02/07/25 History dextroamphetamine-amphetamine ER 20 mg PO DAILY 09/08/24 02/07/25 History 20 mg 24hr capsule,extend release (Adderall XR) lamotrigine 100 mg tablet 100 mg PO DAILY 09/08/24 02/07/25 History propranolol 80 mg capsule,24 80 mg PO DAILY 11/28/24 02/07/25 History hr,extended release quetiapine 50 mg tablet 50 mg PO HS 11/28/24 02/07/25 History lisinopril 20 mg tablet See Rx Instructions .Route 12/20/24 02/07/25 Rx .COMPLEX #90 tabs pantoprazole 40 mg tablet,delayed See Rx Instructions .Route 02/05/25 02/07/25 Rx release .COMPLEX #30 tabs Allergies Allergy/AdvReac Type Severity Reaction Status Date / Time No Known Allergies Allergy Verified 02/07/25 10:07 Exam Narrative: unchanged Assessment and Plan Assessment and plan (1) Trigger ring finger of right hand: Code(s): M65.341 - Trigger finger, right ring finger Status: Acute Assessment and Plan: cont as above
--- NOTE | 2025-02-07 06:49 | W.PM.PROC2 ---
Procedure Note - Detailed Date of Procedure 02/07/25 Pre-op Diagnosis rt ring trigger finger Post-op Diagnosis Same Procedure Performed right ring finger a1 daiana release Surgeon Anton hKanna MD Fire Engineer kathia donovan pa-c Anesthesia MAC Description of Procedure INFORMED CONSENT: The patient was seen and examined and marked in the pre-op area.? The patient signed the consent form. PROCEDURE IN DETAIL:The patient taken back to OR on the stretcher in supine position. Time out performed with anesthesia, surgeon and staff agreeing on patient's name site and surgery to be performed SCDs were placed on the lower extremities and inflated. A tourniquet was placed on {right} upper extremity and antibiotics given IV After anesthesia administered sedation I injected {3}cc 1%lido and 0.5% marcaine plain at the operative site The?{right upper extremity}?was prepped and draped in sterile fashion the??{right upper extremity} was? exsanguinated with Esmarch bandage and tourniquet inflated to 250mmHg I made an incision over the right ring finger A1 daiana through skin and dermis with a 15 blade scalpel. Littler scissors were used to spread through subcutaneous tissue down to the A1 daiana. The A1 daiana was identified and initially incised with 15 blade scalpel Littler scissors were used to spread above and below it proximally and distally completing the transection entirely. Ragnell retractor was used withdrawal the FDS and FDP tendons for inspection. The tendons were free of masses and synovitis and gliding smoothly in the sheath without triggering or crepitus though a small amount of fraying noted on fds. Irrigated with normal saline and closed with 4-0 chromic. A dressing of xeroform, 4x4, cuate, and an kate bandage was applied after the tourniquet was let down noting the hand was warm and well perfused. The patient was then awaken from anesthesia and transferred to the recovery room in stable condition.? Complications - none EBL- 0cc Disposition - home in stable condition Kathia Donovan PA-C was essential for positioning, retraction, closure and dressing placement. [facility] [place] Billing Surgery - Charge Forward: Surgery Billing ([id number] for kathia)
[2025-02-07 10:21] VITALS: BP 142/79; PULSE 69; RESP 18; TEMP 36.7; O2SAT 99
[2025-02-07] MEDS: LACTATED RINGERS 1,000 ML 30 ML IV CONT (10:35)
[2025-02-07] MEDS: ACETAMINOPHEN 500 MG TABLET 1000 MG PO (10:35)
--- NOTE | 2025-02-07 11:05 | WPDANESEPPF ---
Anes - Initial Pre Proc Eval Procedure: Operation Date: 02/07/25 11:45 Proposed Procedures p Right Ring Finger A-1 Taniya Release - Anton Khanna MD Date/Time: 02/07/25 11:05 Surgeon: Anton Khanna MD Pre Op Diagnosis: rt ring trigger finger Patient Data Age: 44 Gender: M Height: 1.83 m Weight: 88.9 kg Last Vital Signs Temp 98.0 F 02/07/25 10:21 Pulse 69 02/07/25 10:21 Resp 18 02/07/25 10:21 BP 142/79 H 02/07/25 10:21 Pulse Ox 99 02/07/25 10:21 O2 Del Method Room Air 02/07/25 10:21 Allergies Allergy/AdvReac Type Severity Reaction Status Date / Time No Known Allergies Allergy Verified 02/07/25 10:07 Home Medications ?Medication ?Instructions ?Recorded ?Confirmed ?Type atorvastatin 80 mg tablet See Rx Instructions .Route 04/17/24 02/07/25 Rx .COMPLEX #90 tabs citalopram 20 mg tablet 20 mg PO DAILY 09/08/24 02/07/25 History dextroamphetamine-amphetamine ER 20 mg PO DAILY 09/08/24 02/07/25 History 20 mg 24hr capsule,extend release (Adderall XR) lamotrigine 100 mg tablet 100 mg PO DAILY 09/08/24 02/07/25 History propranolol 80 mg capsule,24 80 mg PO DAILY 11/28/24 02/07/25 History hr,extended release quetiapine 50 mg tablet 50 mg PO HS 11/28/24 02/07/25 History lisinopril 20 mg tablet See Rx Instructions .Route 12/20/24 02/07/25 Rx .COMPLEX #90 tabs pantoprazole 40 mg tablet,delayed See Rx Instructions .Route 02/05/25 02/07/25 Rx release .COMPLEX #30 tabs Patient hx anesthesia problems: none Family hx anesthesia problems: none Results Review: All pre-operative results and documents have been reviewed as part of the pre-operative evaluation. [facility] Past Medical History Medical History Hypertension Anxiety Hyperlipidemia Surgical History Surgical History No history of previous surgery Social History Social History Social History: Caffeine-coffee Smoking packs per day: 0.5 Smoking cigarettes per day: 10.0 Years smoked: 9 Smoking pack-years: 4.50 Smoking status: Former smoker Tobacco type: cigarettes Smoking end date: 11/28/04 Additional smoking assessment comments: Quit smoking 2010. 10pk yr history Alcohol intake: former Substance use: never Lack of Transportation: No Lack of Food: Never True Current Housing: I Have Housing Concerned About Future Housing: No Difficulty Paying Gas/Electric Bills: No Difficulty Paying for Meds: No Currently Unemployed: No Education: Trade/Vocational Certificate Difficulty w/ Childcare or Family Care: No Living arrangements: with family Spiritual care concerns: No Anes - Eval Final PreProcedure Day of Procedure 02/07/25 11:05 Patient weight: normal Lungs: normal air movement Airway: Mallampati scale class II Neurological: alert and oriented Last oral intake: >/= 8 hours ASA classification: II Emergent: no Anesthetic plan: proceed Anesthesia type and monitoring: general GIVS and standard monitoring Results Review: All pre-operative results and documents have been reviewed as part of the pre-operative evaluation. HTN, hyperlipemia, ex smoker, active w gym workouts 5 x weekly, no cp or sob. Informed Consent: The patient's anesthetic plan and its attendant risks and benefits were discussed with the patient/family/POA. Questions were solicited and answers provided to the satisfaction of the patient/family/POA.
[2025-02-07] MEDS: ceFAZolin 2 GM in SODIUM CHLORIDE 0.9% IV 50 ML 100 ML IVPB (11:32)
[2025-02-07 11:52] VITALS: BP 105/56; PULSE 60; RESP 12; O2SAT 98
[2025-02-07] MEDS: LIDOCAINE 1% LOCAL INJ 10 ML VIAL 2.5 ML INFILTRATE (11:54)
[2025-02-07 12:00] VITALS: BP 112/71; PULSE 71; RESP 16; O2SAT 96
[2025-02-07 12:30] VITALS: BP 106/73; PULSE 64; RESP 18
== END 2025-02-07 12:43 | disposition home or self-care (01) ==
PROVIDERS: PCP Family Medicine; Visit Provider Plastic Surgery
PROC: (CPT 26055; principal; 2025-02-07 11:45)
DX: M65.341 Trigger finger, right ring finger (principal); I10 Essential (primary) hypertension; E78.5 Hyperlipidemia, unspecified; F41.9 Anxiety disorder, unspecified; Z79.891 Long term (current) use of opiate analgesic; Z87.891 Personal history of nicotine dependence
CPT/HCPCS: 26055; J0690; A9270; J2003; J2405; J2704; J7120